=== PATIENT | female | born 1955 | race Caucasian/White ===

== ENCOUNTER → 2021-04-30 00:01 | Outpatient (BNVA) | payer MEDICARE, SELFPAY | PROVIDERS: Family Provider Nurse Practitioner Family; PCP Nurse Practitioner Family; Visit Provider Nurse Practitioner | DX: R42 Dizziness and giddiness (principal) | CPT/HCPCS: 87426 ==

== ENCOUNTER → 2023-01-23 08:06 | Outpatient (BNVA) | payer MEDICARE, SELFPAY | PROVIDERS: Family Provider Nurse Practitioner Family; PCP Nurse Practitioner Family; Visit Provider Podiatrist Foot & Ankle Surgery | DX: S92.502A Displaced unspecified fracture of left lesser toe(s), initial encounter for closed fracture; W06.XXXA Fall from bed, initial encounter | CPT/HCPCS: 73630; 99203 ==

== ENCOUNTER → 2023-03-13 08:42 | Outpatient (BNVA) | payer MEDICARE, SELFPAY | PROVIDERS: Family Provider Nurse Practitioner Family; PCP Nurse Practitioner Family; Visit Provider Podiatrist Foot & Ankle Surgery | DX: S92.502D Displaced unspecified fracture of left lesser toe(s), subsequent encounter for fracture with routine healing; M89.8X7 Other specified disorders of bone, ankle and foot; M21.612 Bunion of left foot; M20.42 Other hammer toe(s) (acquired), left foot; X58.XXXD Exposure to other specified factors, subsequent encounter | CPT/HCPCS: 73630; 99214 ==

== ENCOUNTER 2023-04-05 06:21 | Day surgery (SDC) | payer MEDICARE, SELFPAY ==
[2023-04-05] VITALS (7 sets, daily range): BP systolic 99–152; BP diastolic 50–82; PULSE 59–68; RESP 14–18; TEMP 36.1–36.6; O2SAT 95–99; BMI 26.9
--- NOTE | 2023-04-05 | XR_ITS ---
WS: [id number] Exam: XR foot LT 2V [id number] Date/Time of Exam: 04/05/2023 12:00 AM Reason For Exam: Left 1st tarsometatarsal fusion, or pic Limited AP and lateral C-arm images of the LEFT forefoot depict a surgical drill and screw directed a xially through the second toe. Images obtained for intraoperative guidance.
--- NOTE | 2023-04-05 06:23 | W.PM.OPSUD ---
Surgery/Procedure H&P Update DATE OF PROCEDURE: April 05, 2023 DATE H&P PERFORMED: 03/13/23 H&P UPDATE INFORMATION: I have reviewed H&P completed within last 30 days, I have examined patient prior to procedure, No changes to prior documentation and H&P is in [facility] [facility] [place] on date indicated PLANNED PROCEDURE: Operation Date: 04/05/23 08:10 Proposed Procedures p Left first tarsometatarsal fusion and Fusion left second toe distal interphalangeal joint 54096,48334,M89.8X7, M19.072,M21.612,M20.42(Left) - Vikram Mcclendon DPM
[2023-04-05] MEDS: scopolamine 1.5 Patch 1 PATCH TRANSDERMA (07:04)
[2023-04-05] MEDS: sodium chloride 0.9% 1,000 ML 30 ML IV (07:10)
--- NOTE | 2023-04-05 08:12 | ANES.PREANE2 ---
Pre-Anesthetic Assessment Height/Weight: Height 1.63 m Weight 71.214 kg Temp Pulse Resp BP Pulse Ox O2 Del Method 97.9 F 68 18 152/71 97 Room Air 04/05/23 06:56 04/05/23 06:56 04/05/23 06:56 04/05/23 06:56 04/05/23 06:56 04/05/23 06:57 Preop Diagnosis: Left bunion. Left second hammertoe. Operation Date: 04/05/23 08:10 Proposed Procedures p Left first tarsometatarsal fusion and Fusion left second toe distal interphalangeal joint 32133,43273,M89.8X7, M19.072,M21.612,M20.42(Left) - Vikram Mcclendon DPM Familial anesthetic complications: PONV Was Beta Reena taken within 24 hours: N/A Was Clonidine taken within 24 hours: N/A Last intake: Intake Last Liquid Date 04/04/23 Last Liquid Time 21:00 Last Solid Date 04/04/23 Last Solid Time 18:00 Social No alcohol and No tobacco Exam alert, oriented x 3 and regular rate & rhythm Airway Submandibular: within normal limits Cervical ROM: within normal limits Mallampati: Class II Dentition: full CV/HEM Hypertension Anesthetic Plan ASA status: 2 Anesthesia: MAC Medications/Allergies Home Medications Medication Instructions Recorded Confirmed Last Taken Type albuterol sulfate 90 mcg/actuation 2 puff inhalation Q6H PRN Allergy 04/30/21 04/04/23 10/27/22 History aerosol inhaler (ProAir HFA) Symptoms aspirin 81 mg capsule 81 mg PO DAILY 04/30/21 03/13/23 Unknown History cyclobenzaprine 10 mg tablet 10 mg PO TID 04/30/21 04/04/23 03/31/23 History docusate sodium 100 mg capsule 100 mg PO BID 04/30/21 04/04/23 04/04/23 History (Colace) estradiol 1 mg tablet 1 mg PO DAILY 04/30/21 04/04/23 04/04/23 History fluticasone propionate 50 1 spray intranasal BID 04/30/21 04/04/23 Unknown History mcg/actuation nasal spray,suspension ibuprofen 800 mg tablet (IBU) 800 mg PO TID PRN Mild Pain (Scale 04/30/21 04/04/23 10/27/22 History Score 1-4) medroxyprogesterone 5 mg tablet 5 mg PO DAILY 04/30/21 04/04/23 04/04/23 History olmesartan 20 mg tablet 20 mg PO DAILY 04/30/21 04/04/23 04/04/23 History valacyclovir 500 mg tablet 500 mg PO DAILY PRN Cold Sores 04/30/21 04/04/23 Unknown History hydrocodone 10 mg-acetaminophen 1 tab PO Q6H PRN pain 7 days #28 04/05/23 Unknown Rx 325 mg tablet tabs Allergies Allergy/AdvReac Type Severity Reaction Status Date / Time codeine Allergy ALGY-Anaphy Verified 03/13/23 09:10 laxis linaclotide [From Linzess] Allergy ADR-Diarrhe Verified 04/04/23 11:59 a pregabalin [From Lyrica] Allergy ALGY-Anaphy Verified 03/13/23 09:10 laxis wasps Allergy ALGY-Difficulty Uncoded 04/04/23 11:59 Breathing Current Medications Generic Name Dose Route Start Last Admin Trade Name Freq PRN Reason Stop Dose Admin Sodium Chloride 1,000 mls @ 30 mls/hr 04/05/23 06:45 04/05/23 07:11 Sodium Chloride 0.9% IV 04/06/23 06:44 30 mls/hr .Q24H TIM Infusion PFSH Anesthesia Social History Smoking and tobacco/nicotine status: never used tobacco/nicotine Data Anesthesia Cardiac Studies: No Data to Display
[2023-04-05] MEDS: ceFAZolin 2,000 MG in sodium chloride 0.9% (plus) 50 ML 100 MG IV (09:45)
[2023-04-05] MEDS: BUPivacaine liposome 13.3 mg/mL SDV 10 mL 266 MG INFILTRATI (10:20)
[2023-04-05] MEDS: BUPivacaine 0.5% INJ 30 mL XX (10:21)
--- NOTE | 2023-04-05 10:59 | P.OP_ITS ---
Operative Report Date of procedure: April 05, 2023 Procedure done: Left first tarsometatarsal fusion and Fusion left second toe distal interphalangeal joint [id number] Surgeon: Vikram Mcclendon DPM Brass And Wind Instrument Repairer: Isela Mcintyre Estimated blood loss: 2 55
--- NOTE | 2023-04-05 10:59 | PM.OP ---
Operative Report Date of procedure: April 05, 2023 Procedure done: Left first tarsometatarsal fusion and Fusion left second toe distal interphalangeal joint [id number] Surgeon: Vikram Mcclendon DPM Hooker Inspector: Isela Mcintyre Estimated blood loss: 2 55
--- NOTE | 2023-04-05 11:00 | W.PM.BPON ---
Date of Procedure: 04/05/23 Surgeon: Vikram Mcclendon DPM Fence Making Machine Operator(s): Isela Mcintyre Procedure(s) performed: First tarsometatarsal joint fusion and second hammertoe correction left foot. Findings of the procedure(s): None Estimated blood loss: 2 mL Specimen(s) removed: None Post-operative diagnosis: Left bunion, left second hammertoe. No complications
--- NOTE | 2023-04-05 11:28 | PM.OP ---
Operative Report Date of procedure: April 05, 2023 Pre-op diagnosis: Exostosis of left foot. Left midfoot arthritis. Bunion, left foot. Hammertoe left second toe. Post-op diagnosis: Same Procedure done: Left first tarsometatarsal joint fusion. CPT code 26482 Left second toe distal and proximal interphalangeal joint fusion. CPT code 07985 Implants: [place] Lapidus plate with 3.5 mm locking screws and 4 mm homerun screw. [place] 2 mm headed screw short thread and point 4 5 K wire. 3-0 Vicryl, 4-0 Vicryl, 4-0 nylon Specimens removed/disposition: None Pathology: none Surgeon: Vikram Mcclendon DPM Plaster Block Layer: See intraoperative documentation Estimated blood loss: 2 See intraoperative documentation IV fluids: 0 Urine output: 0 Complications: None Brief History: Left foot shows exostosis with dorsal bossing of the left first metatarsal base and medial cuneiform, mild hallux valgus with abnormal tibial sesamoid position, sagittal plane dominant hammertoe with avulsion fracture of the left second toe at the DIPJ. Patient wishes to discuss surgical invention as she has failed conservative measures of supportive shoes, activity modifications, anti-inflammatories, offloading, stretching and padding. I reviewed at length with the patient, the risks, potential complications, benefits, alternatives, expectations, and typical outcomes associated with the surgery. The risks and potential complications were explained in detail, including but not limited to infection, wound dehiscence or soft tissue complications, bleeding and hematoma, chronic edema, neuritis or nerve damage producing numbness or chronic pain, CRPS, failure to relieve pain or worsening pain, thick / painful / unsightly scar, limited motion / stiffness, malposition, delayed union, malunion, or nonunion, fracture, reaction to implants, anesthetic complications, venous thromboembolism, and deformity recurrence. I discussed the notion of no regrets with the patient as it pertains to complications and outcomes. The patient seemed to understand the nature of the proposed care and required convalescence. They asked appropriate questions, answered to their satisfaction. They are aware no guarantees can be made as to a satisfactory outcome and they understand there may be other possible unforeseen complications or outcomes not listed here that will be treated accordingly if they arise. There were no written or implied guarantees given to the patient. They gave informed consent to proceed. Planned procedure is left first tarsometatarsal joint arthrodesis with removal of exostosis and left second distal interphalangeal joint second toe arthrodesis with 2 mm screw. Procedure: Under mild sedation the patient was brought to the operating room and remained on the gurney in supine position. A timeout was performed. Anesthesia was then administered by the anesthesia service. Local state injected by myself consisting of 0.5 to Marcaine plain total of 20 cc in the left male block fashion and second toe block fashion followed by 20 cc of Exparel subcutaneously at the operative site in a grid like fashion. Well-padded pneumatic tourniquet was applied to the left ankle. The left lower extremity was scrubbed, prepped and draped utilizing normal aseptic technique. Left foot was exanguinated with an Esmarch bandage and tourniquet inflated to 250 mmHg. Attention was directed to the dorsal medial aspect of the left first metatarsal base and medial cuneiform where a curvilinear incision was made through skin with dissection carried down through subcutaneous tissue to the layer of periosteum utilizing sharp and blunt technique. Care was taken to retract and preserve neurovascular and tendinous structures. All bleeders were ligated and cauterized as necessary. Periosteal Incision Was Performed and the Base of the First Metatarsal and Distal Articular Surface of the Medial Cuneiform Were Denuded of Articular Surface. Dorsal Exostosis Was Transected. The Incision Was Irrigated with Saline Solution and the Arthrodesis Site Was Prepped with Subchondral Drilling with a Fenestrating Drill Bit Followed by Reduction of the First Metatarsal Angle down to Parallel to the Second, Held under Compression and a 4.0 Mm Homerun Screw Provide by Sejal Denise from Dorsal Distal to Proximal Plantar Not Crossing the Naviculocuneiform Joint Confirmed on AP, Oblique and Lateral Views of the Left Foot. Additional Locking Plate Dorsal Medial Aspect of the Arthrodesis Site for Lapidus Fusion Was Fixated Utilizing 3.5 Millimeter Screws with Excellent Bony Apposition and Compression Noted. Hardware Did Not Violate Adjacent Joints Confirmed on AP, Oblique and Lateral View of the Left Foot. The Incision Was Irrigated with Saline Solution and Closed in a Layered Fashion with Periosteum and Joint Capsule Reapproximated 3-0 Vicryl, Subcutaneous Tissue with 4-0 Vicryl and Skin with 4-0 Nylon. Attention Was Directed to the Left Second Toe Where a Linear Longitudinal Incision Made at the Dorsal Aspect of the Left Second Toe through Skin with Dissection Carried down to the Extensor Tendon Which Was Transected at the Level of the Distal Interphalangeal Joint Retracted Proximally. The Base of the Distal Phalanx and Intermediate Veins Were Denuded of Articular Surface, the Head of the Intermediate Phalanx and Proximal Phalanx Were Denuded Articular Surface Perpendicular to the Longitudinal [place] of the Phalanx Respectively. The Incision Was Irrigated with Saline Solution. The Distal Interphalangeal Joint Was Prepped for Fusion and Fixated Utilizing a 2 Mm [place] Screw Not Crossing the Proximal Interphalangeal Joint, Additional Stability Was Imparted with a 0.45 K Wire Crossing the Proximal to Phalangeal Joint and Not Violating the Second Metatarsal Phalangeal Joint This Was Confirmed on AP, oblique and lateral view, distal portion of the pin was bent dorsally at 90 degrees and covered with a Hugo ball after trimming. Incision was irrigated with copious amounts of sterile saline solution at the left second toe. The extensor tendon was reapproximated with 4-0 Vicryl, skin with 4-0 nylon. All incisions were then dressed with Adaptic, sterile 4 x 4's, Kerlix and Zev wrap followed by application of a cam boot to the left lower extremity. The left ankle tourniquet was deflated and a prompt hyperemic response was noted to the distal digits of the left foot. Patient tolerated the procedure and anesthesia well and was transferred to the PACU with vital signs stable and vascular status intact. Following a period of postoperative monitoring she will be discharged home was given at home care instructions, scheduled follow-up and my cell phone number to contact with any postoperative questions or concerns.
--- NOTE | 2023-04-05 14:42 | ANE.PACU2 ---
Inpatient post-anesthesia follow up: Airway intact: Yes Vital signs: Temperature 97.0 F Pulse Rate 59 Respiratory Rate 17 Blood Pressure 127/69 Pulse Oximetry 97 Oxygen Delivery Me thod Room Air Oxygen Flow Rate Fraction of Inspir ed Oxygen Hydration adequate: Yes Nausea and vomiting: No Pain level: 2 Mental status: Baseline
== END 2023-04-05 12:00 | disposition home or self-care (01) ==
PROVIDERS: PCP Nurse Practitioner Family; Visit Provider Podiatrist Foot & Ankle Surgery
PROC: (CPT 28740; principal; 2023-04-05 08:00)
DX: M89.9 Disorder of bone, unspecified (principal); M19.072 Primary osteoarthritis, left ankle and foot; M21.612 Bunion of left foot; M20.42 Other hammer toe(s) (acquired), left foot; I10 Essential (primary) hypertension
CPT/HCPCS: 28285; 28740; 73620; 76000; C1713; C9290; J0690; J2250; J2405; J2704; J3490; J7030

== ENCOUNTER → 2023-04-18 14:18 | Outpatient (BNVA) | payer MEDICARE, SELFPAY | PROVIDERS: PCP Nurse Practitioner Family; Visit Provider Podiatrist Foot & Ankle Surgery | DX: Z98.890 Other specified postprocedural states (principal); S92.502D Displaced unspecified fracture of left lesser toe(s), subsequent encounter for fracture with routine healing; M89.8X7 Other specified disorders of bone, ankle and foot; M21.612 Bunion of left foot; M20.42 Other hammer toe(s) (acquired), left foot; X58.XXXD Exposure to other specified factors, subsequent encounter | CPT/HCPCS: 73630; 99024 ==

== ENCOUNTER → 2023-05-02 13:46 | Outpatient (BNVA) | payer MEDICARE, SELFPAY | PROVIDERS: PCP Nurse Practitioner Family; Visit Provider Podiatrist Foot & Ankle Surgery | DX: Z98.890 Other specified postprocedural states (principal); S92.502D Displaced unspecified fracture of left lesser toe(s), subsequent encounter for fracture with routine healing; M89.8X7 Other specified disorders of bone, ankle and foot; M21.612 Bunion of left foot; M20.42 Other hammer toe(s) (acquired), left foot; X58.XXXD Exposure to other specified factors, subsequent encounter | CPT/HCPCS: 73630; 99024 ==

== ENCOUNTER → 2023-05-16 12:40 | Outpatient (BNVA) | payer MEDICARE, SELFPAY | PROVIDERS: PCP Nurse Practitioner Family; Visit Provider Podiatrist Foot & Ankle Surgery | DX: Z98.890 Other specified postprocedural states (principal); S92.502D Displaced unspecified fracture of left lesser toe(s), subsequent encounter for fracture with routine healing; X58.XXXD Exposure to other specified factors, subsequent encounter; M89.8X7 Other specified disorders of bone, ankle and foot; M21.612 Bunion of left foot; M20.42 Other hammer toe(s) (acquired), left foot | CPT/HCPCS: 73630; 99024 ==

== ENCOUNTER → 2023-06-13 12:29 | Outpatient (BNVA) | payer MEDICARE, SELFPAY | PROVIDERS: PCP Nurse Practitioner Family; Visit Provider Podiatrist Foot & Ankle Surgery | DX: Z98.890 Other specified postprocedural states (principal) | CPT/HCPCS: 73630; 99213 ==

== ENCOUNTER 2023-07-10 10:22 | Outpatient (CLI) | payer MEDICARE, SELFPAY | END 2023-07-10 10:23 | disposition home or self-care (01) | LOC: SPT 07-11 10:23 | PROVIDERS: PCP Nurse Practitioner Family; Visit Provider Podiatrist Foot & Ankle Surgery | DX: Z47.89 Encounter for other orthopedic aftercare (principal); M89.8X7 Other specified disorders of bone, ankle and foot; M21.612 Bunion of left foot; M20.42 Other hammer toe(s) (acquired), left foot | CPT/HCPCS: L3030 ==

== ENCOUNTER → 2023-09-16 07:47 | Outpatient (BNVA) | payer MEDICARE, SELFPAY | PROVIDERS: PCP Nurse Practitioner Family; Visit Provider Podiatrist Foot & Ankle Surgery | DX: Z98.890 Other specified postprocedural states (principal); M76.62 Achilles tendinitis, left leg | CPT/HCPCS: 99213 ==

== ENCOUNTER → 2023-11-18 08:01 | Outpatient (BNVA) | payer MEDICARE, SELFPAY | PROVIDERS: PCP Nurse Practitioner Family; Visit Provider Podiatrist Foot & Ankle Surgery | DX: M76.62 Achilles tendinitis, left leg (principal) | CPT/HCPCS: 99213 ==

== ENCOUNTER → 2024-03-09 08:05 | Outpatient (BNVA) | payer MEDICARE, SELFPAY | PROVIDERS: PCP Nurse Practitioner Family; Visit Provider Podiatrist Foot & Ankle Surgery | DX: Z01.818 Encounter for other preprocedural examination; M79.671 Pain in right foot; M19.071 Primary osteoarthritis, right ankle and foot; M89.8X7 Other specified disorders of bone, ankle and foot; L60.3 Nail dystrophy | CPT/HCPCS: 73630; 99214 ==

== ENCOUNTER 2024-04-03 07:18 | Day surgery (SDC) | payer MEDICARE, SELFPAY ==
[2024-04-03] VITALS (7 sets, daily range): BP systolic 101–168; BP diastolic 53–73; PULSE 55–66; RESP 16–18; TEMP 36.2–36.8; O2SAT 97–100; BMI 26.6
--- NOTE | 2024-04-03 | XR_ITS ---
WS: [id number] Exam: XR foot RT 2V [id number] Date/Time of Exam: 04/03/2024 12:00 AM Reason For Exam: ABBEY PICS Postoperative images of the RIGHT foot are submitted. Images depict internal fixation of the first metatarsal cuneiform joint with plate and screw fixation .
[2024-04-03] MEDS: scopolamine 1.5 Patch 1 PATCH TRANSDERMA (07:52)
[2024-04-03] MEDS: sodium chloride 0.9% 1,000 ML 30 ML IV (07:53)
--- NOTE | 2024-04-03 08:01 | P.HPUD_ITS ---
Surgery/Procedure H&P Update DATE OF PROCEDURE: April 03, 2024 DATE H&P PERFORMED: 03/09/24 H&P UPDATE INFORMATION: I have reviewed H&P completed within last 30 days, I have examined patient prior to procedure, No changes to prior documentation and H&P is in [facility] [place] [facility] [place] on date indicated PREOP DIAGNOSIS: Right midfoot arthritis, onychodystrophy PLANNED PROCEDURE: Operation Date: 04/03/24 09:25 Proposed Procedures p midfoot fusion(Right) - Vikram Mcclendon DPM s Total matrixectomy right fifth toenail(Right) - Vikram Mcclendon DPM
--- NOTE | 2024-04-03 08:36 | ANES.PREANE2 ---
Pre-Anesthetic Assessment Height/Weight: Height 5 ft 4 in Weight 155 lb Temp Pulse Resp BP Pulse Ox O2 Del Method 97.6 F 66 18 168/62 98 Room Air 04/03/24 07:38 04/03/24 07:38 04/03/24 07:38 04/03/24 07:38 04/03/24 07:38 04/03/24 07:38 Preop Diagnosis: Right midfoot arthritis, onychodystrophy Operation Date: 04/03/24 09:25 Proposed Procedures p midfoot fusion(Right) - Vikram Mcclendon DPM s Total matrixectomy right fifth toenail(Right) - Vikram Mcclendon DPM Was Beta Reena taken within 24 hours: N/A Was Clonidine taken within 24 hours: N/A Last intake: Intake Last Liquid Date 04/02/24 Last Liquid Time 22:00 Last Solid Date 04/02/24 Last Solid Time 20:00 Social No alcohol and No tobacco Exam alert, oriented x 3, clear to auscultation bilaterally and regular rate & rhythm Airway Submandibular: within normal limits Cervical ROM: within normal limits Mallampati: Class II Dentition: full Anesthetic Plan ASA status: 2 Anesthesia: MAC Other: Patient denies issues with anesthesia in the past NPO since yesterday Denies any cardiac or pulmonary issues Preop BP 168/62 METs greater than 4 Plan for MAC anesthetic with local via surgeon Medications/Allergies Home Medications Medication Instructions Recorded Confirmed Last Taken Type albuterol sulfate 90 mcg/actuation 2 puff inhalation Q6H PRN Allergy 04/30/21 04/02/24 10/27/22 History aerosol inhaler (ProAir HFA) Symptoms estradiol 1 mg tablet 1 mg PO DAILY 04/30/21 04/02/24 04/02/24 History fluticasone propionate 50 1 spray intranasal BID 04/30/21 04/02/24 Unknown History mcg/actuation nasal spray,suspension ibuprofen 800 mg tablet (IBU) 800 mg PO TID PRN Mild Pain (Scale 04/30/21 04/02/24 10/27/22 History Score 1-4) medroxyprogesterone 5 mg tablet 5 mg PO DAILY 04/30/21 04/02/24 04/02/24 History valacyclovir 500 mg tablet 500 mg PO DAILY PRN Cold Sores 04/30/21 04/02/24 Unknown History Sole supports #1 ea 06/13/23 03/09/24 Unknown Rx hydrocodone 10 mg-acetaminophen 1 tab PO Q6H PRN pain 7 days #28 04/02/24 Unknown Rx 325 mg tablet tabs hydrocodone 10 mg-acetaminophen 1 tab PO Q6H PRN pain 7 days #28 04/02/24 Unknown Rx 325 mg tablet tabs epinephrine 0.3 mg/0.3 mL 0.3 mg IM Q10M PRN Allergy Symptoms 04/03/24 04/03/24 Unknown History injection, auto-injector Allergies Allergy/AdvReac Type Severity Reaction Status Date / Time codeine Allergy ALGY-Anaphy Verified 03/09/24 07:58 laxis linaclotide [From Linzess] Allergy ADR-Diarrhe Verified 03/09/24 07:58 a pregabalin [From Lyrica] Allergy ALGY-Anaphy Verified 03/09/24 07:58 laxis venom-wasp protein Allergy ALGY-Difficulty Verified 03/09/24 07:58 Swallowing Current Medications Generic Name Dose Route Start Last Admin Trade Name Freq PRN Reason Stop Dose Admin Sodium Chloride 1,000 mls @ 30 mls/hr 04/03/24 07:30 04/03/24 07:53 Sodium Chloride 0.9% IV 04/04/24 07:29 30 mls/hr .Q24H TIM Administration PFSH Anesthesia Social History Smoking and tobacco/nicotine status: never used tobacco/nicotine Data Anesthesia Cardiac Studies: No Data to Display
--- NOTE | 2024-04-03 09:41 | PM.OP ---
Operative Report Date of procedure: April 03, 2024 Pre-op diagnosis: Right foot pain M79.671 Arthritis of right midfoot M19.071 Exostosis of bone of foot M89.8X7 Onychodystrophy L60.3 Post-op diagnosis: Right foot pain M79.671 Arthritis of right midfoot M19.071 Exostosis of bone of foot M89.8X7 Onychodystrophy L60.3 Procedure done: 1) right midfoot fusion. CPT code 57130 2) total matrixectomy right fifth toenail. CPT code 02482 Implants: [place] 4 mm homerun screw, cannulated [place] Lapidus plate with 3.5 mm locking and nonlocking screws 3-0 Vicryl, 4-0 Vicryl, 4-0 nylon Specimens removed/disposition: no specimens Pathology: No pathology Surgeon: Vikram Mcclendon DPM Trimmer And Borer Machine Operator: Samra Estimated blood loss: 5mL 29 min IV fluids: see intraoperative documentation Urine output: None Complications: none Brief History: Ms. Mcelroy is an established 69 year old female patient here for pre operative H&P update prior to scheduled Lapidus right, and right fifth total matrixectomy. Arthrosis and instability at the right tarsometatarsal joint has developed a spur there is no longer able to be offloaded effectively with pads, spacing, accommodative shoes and orthotics and is requiring removal as it affects her overall quality of life same with her right fifth toenail where she can have it removed as it no longer can be filed down and alleviate pain. No longer responding to oral anti-inflammatories and rest. I reviewed at length with the patient, the risks, potential complications, benefits, alternatives, expectations, and typical outcomes associated with the surgery. The risks and potential complications were explained in detail, including but not limited to infection, wound dehiscence or soft tissue complications, bleeding and hematoma, chronic edema, neuritis or nerve damage producing numbness or chronic pain, CRPS, failure to relieve pain or worsening pain, thick / painful / unsightly scar, limited motion / stiffness, malposition, delayed union, malunion, or nonunion, fracture, reaction to implants, anesthetic complications, venous thromboembolism, and deformity recurrence. I discussed the notion of no regrets with the patient as it pertains to complications and outcomes. The patient seemed to understand the nature of the proposed care and required convalescence. They asked appropriate questions, answered to their satisfaction. They are aware no guarantees can be made as to a satisfactory outcome and they understand there may be other possible unforeseen complications or outcomes not listed here that will be treated accordingly if they arise. There were no written or implied guarantees given to the patient. They gave informed consent to proceed. Procedure: Under mild sedation the patient was brought to the operating room and remained on the gurney in supine position. A timeout was performed. Anesthesia was then administered by the anesthesia service. Local anesthesia injected by myself consisting of 20 cc of 0.5% Marcaine plain in a proximal [place] block fashion to the right foot and additional 10 cc in a right fifth ray block fashion, 20 cc of Exparel infiltrated proximally in a subcutaneous gridlike fashion per manufacture recommendation to the right foot at the proximal portion of the planned operative site. Well-padded pneumatic tourniquet applied to the right ankle. The right lower extremity was scrubbed, prepped and draped utilizing normal aseptic technique. Right foot and ankle were then exanguinated with an Esmarch bandage and tourniquet inflated to 250 mmHg. Attention was directed to the bony exostosis from arthritic first tarsal metatarsal joint to the right foot where a linear longitudinal incision was made medial and parallel to the extensor hallucis longus tendon through skin with dissection carried down through layers of subcutaneous tissue fat down to fascia and periosteum utilizing sharp and blunt technique. Care was taken to retract and preserve neurovascular and tendinous structures. All bleeders were ligated and cauterized as necessary. The first metatarsal base and distal articular surface of the medial cuneiform were freed from their soft tissue and capsular attachments and prepped for arthrodesis this was noted to have eburnation arthrosis and bony exostosis with juxta articular erosions, this was prepped with a bone resurfacing total followed by fenestrating drill bit for vascular channels the first metatarsal was held in rectus position and fixated with a homerun screw from dorsal distal to proximal plantar not violating the naviculocuneiform joint confirming this with AP oblique and lateral view on C arm. Additional fixation with dorsal medial aspect of the arthrodesis site with a primary Lapidus plate with 3.5 mm locking and nonlocking screws with excellent bony apposition and compression noted. Excellent placement of hardware and not violating adjacent joints confirmed with intraoperative C arm. The incision was irrigated with saline solution and closed in a layered fashion with periosteum reapproximated with 3-0 Vicryl, subcutaneous tissue with 4-0 Vicryl and skin with 4-0 nylon. Incision was dressed with Adaptic, sterile 4 x 4's, Kerlix and Zev wrap. Attention was directed to the fifth toe where a [place] was utilized to release soft tissue attachments of the fifth toenail and the fifth toenail was avulsed in total and passed from the field followed by destruction of the matrix with phenol acid 3 rounds 30 seconds each and alcohol flush this was then dressed with Silvadene Adaptic gauze Lyly. Cam boot was applied to the right lower extremity. Tourniquet was deflated and a prompt hyperemic response was noted to the distal digits of the right foot. Patient tolerated the procedure and anesthesia well and was transferred to the PACU with vital signs stable and vascular status intact. Following a period of postoperative monitoring she will be discharged home without home care instructions and scheduled follow-up.
[2024-04-03] MEDS: ceFAZolin 2,000 mg SDV 2000 MG IVP (09:54)
[2024-04-03] MEDS: BUPivacaine 0.5% INJ 30 mL INJECTION (10:13)
[2024-04-03] MEDS: BUPivacaine liposome 13.3 mg/mL SDV 20 mL 266 MG INJECTION (10:14)
[2024-04-03] MEDS: silver sulfadiazine cream 1% 50 gm 1 APPLIC TOPICAL (10:25)
[2024-04-03] MEDS: HYDROcodone-acetaminophen 10-325 mg Tablet 1 TAB PO (11:24)
--- NOTE | 2024-04-03 11:47 | ANE.PACU2 ---
Inpatient post-anesthesia follow up: Airway intact: Yes Vital signs: Temperature 97.2 F Pulse Rate 57 Respiratory Rate 16 Blood Pressure 151/73 Pulse Oximetry 98 Oxygen Delivery Me thod Room Air Oxygen Flow Rate 6 Fraction of Inspir ed Oxygen Hydration adequate: Yes Nausea and vomiting: No Pain level: 1 Mental status: Baseline
== END 2024-04-03 11:47 | disposition home or self-care (01) ==
PROVIDERS: PCP Nurse Practitioner Family; Visit Provider Podiatrist Foot & Ankle Surgery
PROC: (CPT 28740; principal; 2024-04-03 09:25)
PROC: (CPT 11750; 2024-04-03 09:25)
DX: L60.3 Nail dystrophy (principal); M89.8X7 Other specified disorders of bone, ankle and foot; M19.071 Primary osteoarthritis, right ankle and foot; Z79.82 Long term (current) use of aspirin
CPT/HCPCS: 28740; 11750; 73620; 76000; C1713; C9290; J0690; J2704; J3490; J7030

== ENCOUNTER → 2024-04-16 14:53 | Outpatient (BNVA) | payer MEDICARE, SELFPAY | PROVIDERS: PCP Nurse Practitioner Family; Visit Provider Podiatrist Foot & Ankle Surgery | DX: M19.071 Primary osteoarthritis, right ankle and foot; M89.8X7 Other specified disorders of bone, ankle and foot; L60.3 Nail dystrophy | CPT/HCPCS: 73630; 99024 ==

== ENCOUNTER → 2024-05-14 13:22 | Outpatient (BNVA) | payer MEDICARE, SELFPAY | PROVIDERS: PCP Nurse Practitioner Family; Visit Provider Podiatrist Foot & Ankle Surgery | DX: Z98.890 Other specified postprocedural states (principal) | CPT/HCPCS: 73630; 99024 ==

== ENCOUNTER → 2024-06-11 12:44 | Outpatient (BNVA) | payer MEDICARE, SELFPAY | PROVIDERS: PCP Nurse Practitioner Family; Visit Provider Podiatrist Foot & Ankle Surgery | DX: Z98.890 Other specified postprocedural states (principal) | CPT/HCPCS: 73630; 99024 ==

== ENCOUNTER → 2024-07-16 13:02 | Outpatient (BNVA) | payer MEDICARE, SELFPAY | PROVIDERS: PCP Nurse Practitioner Family; Visit Provider Podiatrist Foot & Ankle Surgery | DX: Z98.890 Other specified postprocedural states (principal) | CPT/HCPCS: 73630; 99024 ==